=== PATIENT | female | born 1945 | race Caucasian/White ===

== ENCOUNTER 2018-09-13 10:33 | Day surgery (SDC) | payer OTHER ==
--- OUTSIDE RECORDS SUMMARY | 2018-09-13 10:36 | XMS REPORT ---
:1945 [facility] Andreas Walker [address] [place] [id number] Care Team Providers Name Role Phone Unavailable Unavailable Unavailable Problems This patient has no known problems. Allergies, Adverse Reactions, Alerts This patient has no known allergies or adverse reactions. Medications This patient has no known medications.
[2018-09-13] MEDS ORDERED: Ringers Lactate 1,000 ML IV ONE (11:09)
[2018-09-13] MEDS: LIDOCAINE 1% W/EPI 1:100,000 MDV 50 ML VIAL ONE ×2 (11:43→12:51)
[2018-09-13] MEDS ORDERED: PROPOFOL 200 MG/20 ML VIAL IV ONE (12:40)
[2018-09-13] MEDS ORDERED: MIDAZOLAM HCL 2 MG/2 ML INJ ONE (12:40)
[2018-09-13] MEDS ORDERED: LIDOCAINE 2% MPF 5 ML VIAL ONE (12:40)
[2018-09-13] MEDS ORDERED: FENTANYL CITR 100 MCG/2 ML ONE (12:57)
[2018-09-13] MEDS ORDERED: LABETALOL 20 MG/4ML SYRINGE IV ONE (15:08)
--- NOTE | 2018-09-13 16:33 | EKG ---
Test Date: 2018-09-12 Test Time: 15:49:02 Steel Erector: LISSETTE MEASUREMENT RESULTS: Intervals: Rate: 73 AZ: 158 QRSD: 68 QT: 392 QTc: 431 [place]: P: 79 AZ: 158 QRS: 66 T: 76 INTERPRETIVE STATEMENTS: Normal sinus rhythm Normal ECG No previous ECG available for comparison Electronically Signed On 09-13-18 16:32:36 CDT by Gilberto Ellington
--- NOTE | 2018-09-14 00:28 | OP ---
Date of Procedure: 09/13/2018 Surgeon: Rita Devries MD Preoperative Diagnosis: Skin neoplasm of uncertain behavior of multiple facial sites. Postoperative Diagnoses: 1. 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 Total size of defect, 2.2 x 1.5 cm. 2. 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 Total defect 18 x 14 mm. 3. Right squamous cell carcinoma in situ, lower cheek defect, 10 x 10 mm. Procedure: 1. Excision of malignant skin lesion, left cheek greater than 2 cm. 2. Excision of malignant skin lesion, right upper cheek defect between 1 and 2 cm. 3. Excision of malignant skin lesion, right lower cheek, size of defect, 10 mm. 4. Closure of left cheek defect by intermediate repair including layered closure and excision of Burow's triangles. 5. Complex repair of surgical defect of the right cheek by local tissue flap rotation and advancement. Indication For Procedure: Ms. Brown presented to the ENT clinic with multiple worrisome looking skin lesions of the bilateral cheeks. The risks, benefits, and alternatives to the procedures were discussed with the patient. She agreed to proceed, and the patient was brought to the operating room. Description Of Procedure: She was placed under general anesthesia via laryngeal mask airway. The areas of skin around the concerning lesions were injected with 1% lidocaine with epinephrine. A total of 6 mL was used. The patient's face was prepped with Betadine and draped in a sterile fashion. The left cheek lesion was addressed first. The lesion was noted to be approximately 18 mm in total diameter. The full-thickness skin was excised using a scalpel with a gross margin of 2-3 mm. A marking suture was placed at the superiormost aspect and designated as 12 o'clock. This was sent fresh to the pathologist for frozen section analysis. Bleeding from the surgical site was controlled using Bovie electrocautery, and attention was turned to the right cheek. The right cheek had two distinct lesions. The first was located approximately 2 cm below the lower eyelid margin and overlying the zygoma and was approximately 1.2-1.5 cm. A second smaller lesion of approximately 5 mm was located on the lower midportion of the cheek at approximately the level of the tragus. Full-thickness skin excision of both of these lesions was performed using a scalpel. A suture was placed on each specimen at the superior most aspect designating 12 o'clock and these two additional specimens were sent to pathology for frozen section analysis. The left cheek lesion pathology returned result of squamous cell carcinoma in situ with negative margins and some underlying seborrheic keratosis. The defect was measured at 22 mm in its maximal diameter. Wide undermining of the surrounding subcutaneous tissues was performed using tenotomy scissors and Bovie electrocautery. A 4-0 Vicryl suture was used to approximate in the midline creating an O to I defect. A Burow's triangle was excised from the superior and inferior aspect, allowing for a linear closure. Additional Vicryl sutures were used in order to reduce tension on the wound and in the skin, and the outer skin layer was closed in a running fashion using 5-0 fast-absorbing gut sutures. The right upper cheek lesion pathology returned as squamous cell carcinoma with negative margins. The right lower cheek lesion returned with squamous cell carcinoma in situ with negative margins and careful consideration was made in regard to closure. Due to the proximity of the 2 lesions, decision was made to perform a single rotational flap to incorporate both of the surgical defects. A rhomboid flap was designed between the 2 lesions and wide undermining of the tissues was performed using Bovie electrocautery. The rhomboid flap had an inferior medial based attachment and was rotated superiorly and medially in order to cover the larger, more superior defect. The additional flap closure was performed. The tissue flaps were approximated using 4-0 Vicryl to reduce tension on the wound and bring the wound edges together. The skin was then closed using 5-0 fast-absorbing gut running sutures. A small Burow's triangle at the superior aspect of the flap and the inferiormost aspect of the smaller cheek defect was performed in order to allow the tissues to lay down smoothly. The skin was then cleaned and dried and triple antibiotic ointment was applied to the surgical sites. The patient was then returned to care of anesthesia for awakening and extubation in the operating room, which proceeded without difficulty. Disposition: The patient will be discharged home in the care of her cousin, and appropriate wound care instructions are discussed with the cousin. The patient may resume all her home medications including her Plavix starting tomorrow and may resume a diet as tolerated. TAMIKO/ALFRED Voice ID: [id number] Report ID: [id number] MTDD
== END 2018-09-13 16:10 | disposition home or self-care (01) ==
LOC: OR 10:33
PROVIDERS: ATTEND Otolaryngology
PROC: 0HB1XZZ Excision of Face Skin, External Approach (ICD-10-PCS; 2018-09-13)
PROC: 0HB1XZZ Excision of Face Skin, External Approach (ICD-10-PCS; 2018-09-13)
PROC: 0HQ1XZZ Repair Face Skin, External Approach (ICD-10-PCS; principal; 2018-09-13 12:00)
DX: C44.329 Squamous cell carcinoma of skin of other parts of face (principal); D04.39 Carcinoma in situ of skin of other parts of face; Z88.1 Allergy status to other antibiotic agents; Z88.3 Allergy status to other anti-infective agents; Z88.0 Allergy status to penicillin; Z91.048 Other nonmedicinal substance allergy status; Z86.73 Personal history of transient ischemic attack (TIA), and cerebral infarction without residual deficits; Z87.891 Personal history of nicotine dependence; Z80.9 Family history of malignant neoplasm, unspecified; Z82.49 Family history of ischemic heart disease and other diseases of the circulatory system
CPT/HCPCS: 93005; 88331; 88332; 88305; 11643; 12051; 14040; J2704; J2250; J3010